=== PATIENT | female | born 1995 | race Caucasian/White ===

== ENCOUNTER 2017-04-15 15:24 | Emergency (ER) | payer SELFPAY ==
[2017-04-15 17:20] VITALS: BP 122/74
--- NOTE | 2017-04-22 19:01 | ED ---
Throat Pain/Nasal Congestion - HPI Summary HPI Summary: Patient presents to the ED with CC of bio toilet tower cleaner in the right eye. Now has a burning sensation, she rinsed the eye for approx 15 minutes under the sink. She still notes to burning despite rinsing. She also endorses blurry vision in the right eye, which has now dissipated, but the drainage is copious and continues to burn. Denies glasses or contact use. She has never injured the eye before. She denies allergies, medications and is generally healthy. Visual acuity not able to be obtained d/t patient unwilling to open eye d/t pain. Erythema and drainage noted. - History of Current Complaint Chief Complaint: EDEyeProblem Time Seen by Provider: 04/15/17 15:50 Hx Obtained From: Patient Onset/Duration: Sudden Onset Severity: Moderate - Epiglottits Risk Factors Epiglottis Risk Factors: Negative - Allergies/Home Medications Allergies/Adverse Reactions: Allergies Allergy/AdvReac Type Severity Reaction Status Date / Time No Known Allergies Allergy Verified 04/15/17 15:29 PMH/Surg Hx/FS Hx/Imm Hx Previously Healthy: Yes - Immunization History Hx Pertussis Vaccination: No Immunizations Up to Date: Unable to Obtain/Confirm Infectious Disease History: Denies: Traveled Outside the [place] in Last 30 Days - Social History Occupation: Employed Part-time Lives: With Family Alcohol Use: Occasionally Hx Substance Use: No Substance Use Type: Reports: None Hx Tobacco Use: Yes Smoking Status (MU): Light Every Day Tobacco Smoker Review of Systems Constitutional: Negative Positive: Photophobia, Blurred Vision, Drainage, Erythema ENT: Negative Cardiovascular: Negative Respiratory: Negative Positive: no symptoms reported, see HPI Musculoskeletal: Negative Skin: Negative Neurological: Negative All Other Systems Reviewed And Are Negative: Yes Physical Exam Triage Information Reviewed: Yes Vital Signs On Initial Exam: Initial Vitals Temp Pulse Resp BP Pulse Ox 98.5 F 73 17 126/76 100 04/15/17 15:25 04/15/17 15:25 04/15/17 15:25 04/15/17 15:25 04/15/17 15:25 Vital Signs Reviewed: Yes Appearance: Positive: Well-Appearing, Well-Nourished Skin: Positive: Warm, Skin Color Reflects Adequate Perfusion Head/Face: Positive: Normal Head/Face Inspection, Temporal Artery Tenderness Eyes: Positive: Conjunctiva Inflammed Neck: Positive: Supple, No Lymphadenopathy Respiratory/Lung Sounds: Positive: Clear to Auscultation, Breath Sounds Present Cardiovascular: Positive: Normal, RRR, Pulses are Symmetrical in both Upper and Lower Extremities Musculoskeletal: Positive: Normal, Strength/ROM Intact Neurological: Positive: Sensory/Motor Intact, Facial Symmetry Psychiatric: Positive: Normal AVPU Assessment: Alert Diagnostics - Vital Signs Vital Signs Temp Pulse Resp BP Pulse Ox 04/15/17 17:19 97.8 F 53 16 122/74 04/15/17 15:25 98.5 F 73 17 126/76 100 - Laboratory Lab Statement: Any lab studies that have been ordered have been reviewed, and results considered in the medical decision making process. EENT Course/Dx - Course Course Of Treatment: Coy lens applied to the left eye and irrigated for 20 minutes based on UTD recommendations. Toilet bowl tower cleaner is an acid and requires minimal irrigation compared to a base. After irrigation, patient is feeling no pain or irritation, erythema has dissipated and her vision is back to normal per patient. Fluoroscein stain and dejesus lamp used to evaluated an corneal damage. No uptake seen. Eye antibiotics prescribed based on protocol and she is to follow up with opthomology if symptoms persist. Patient agrees and is OK with discharge. - Differential Diagnoses Differential Diagnoses: Abrasion, Conjunctivitis, Keratitis - Diagnoses Provider Diagnoses: Acid chemical burn of right eye Discharge - Discharge Plan Condition: Stable Disposition: HOME Prescriptions: Polymyx/Trimethoprim OPTH* [Polytrim OPHTH*] 1 drop RIGHT EYE Q3H #1 btl Patient Education Materials: [facility] (ED) Referrals: [facility] [Primary Care Provider] - Nelson Peoples MD [Medical Doctor] - Additional Instructions: Instill 1 drop in affected eye(s) every 3 hours while awake for 5 days Follow up with opthomology if symptoms persist or worsen Addendum entered and electronically signed by Tiff Hardy PA 04/24/17 07:53 : ED Addendum Addendum: no addendum needed.
== END 2017-04-15 17:19 | disposition home or self-care (01) ==
LOC: ED 15:24
DX: T65.91XA Toxic effect of unspecified substance, accidental (unintentional), initial encounter (principal); T26.91XA Corrosion of right eye and adnexa, part unspecified, initial encounter; H53.8 Other visual disturbances; H53.149 Visual discomfort, unspecified; F17.210 Nicotine dependence, cigarettes, uncomplicated; T79.9XXA Unspecified early complication of trauma, initial encounter; Y93.9 Activity, unspecified; Y92.9 Unspecified place or not applicable
CPT/HCPCS: 99281

== ENCOUNTER 2017-08-27 10:35 | Day surgery (SDC) | payer OTHER ==
--- NOTE | 2017-08-19 19:42 | HP ---
PREOPERATIVE HISTORY AND PHYSICAL: DATE OF ADMISSION/SURGERY: 08/27/17 - [facility] DATE OF OFFICE VISIT: 08/19/17 ATTENDING SURGEON: Angel Jonas MD * (DICTATED BY GRANT SANDOVAL) PROCEDURE: Right knee arthroscopic surgery removal of hardware. CHIEF COMPLAINT: Right knee pain. HISTORY OF PRESENT ILLNESS: Raiza is a 21-year-old female, who presents to the clinic with right knee pain. She had a prior ACL with Dr. Munoz in 2001. She has some pain about the medial tibia due to her hardware. She has failed conservative measures and therefore agreed to undergo a right knee arthroscopic surgery removal of hardware with Dr. Jonas on 08/27/17. PAST MEDICAL HISTORY: She denies current problems. PAST SURGICAL HISTORY: Right and left knee ACL reconstruction. MEDICATIONS: TriNessa 0.18-0.215-0.25 mcg one by mouth everyday. ALLERGIES: No known drug allergies. FAMILY HISTORY: Positive for diabetes on the maternal side. SOCIAL HISTORY: She lives alone. 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 She reports occasional alcohol consumption. She smokes 4 cigarettes a day. She denies illegal drug use. REVIEW OF SYSTEMS: A 14-point review of systems was reviewed with the patient. Positive for current complaint, otherwise negative. Denies chest pain, shortness of breath. Denies fevers, chills. Denies history of bleeding disorder. Denies history of DVT or PE. PHYSICAL EXAMINATION GENERAL: A 21-year-old, well-developed, well-nourished female, in no acute distress. Alert and oriented x3. Appropriate mood and affect. VITAL SIGNS: Height 60, weight 115. Blood pressure 104/66, respiratory rate 18 , temperature 97.7. BMI 22.5. HEENT: Normocephalic, atraumatic. PERRLA. Throat clear. NECK: Supple. PULMONARY: Lungs clear to auscultation bilaterally. No wheezing, rhonchi, or rales. CARDIO: Regular rate and rhythm. S1, and S2. No murmurs, gallops, or rubs. No edema. ABDOMEN: Positive bowel sounds. Soft, nontender. MUSCULOSKELETAL: Right lower extremity: Skin is intact. No warmth or erythema. 1A James. Stable to varus and valgus stress. Mild effusion in the knee. Small palpable tender mass where the tibial tunnel hardware is. Calf: Soft, nontender. Range of motion is 0 to 130. Nontender over the joint line. + 2 PT pulses. Sensation intact to light touch distally. NEURO: Alert and oriented x3. Cranial nerves grossly intact. Sensation is intact to light touch. DIAGNOSTIC STUDIES/LAB DATA: MRI reveals ACL is intact. No obvious meniscus tear, small cyst adjacent to the screw. The screw is intact and appears to be prominent. IMPRESSION: Right knee symptomatic hardware. PLAN: The patient is scheduled to undergo a right knee arthroscopic surgery removal of hardware with Dr. Jonas on 08/27/17. She will follow up 10 to 14 days postop for followup and suture removal. Percocet was sent to the patient' s pharmacy for postop pain management and Keflex for antibiotic prophylaxis. GRANT SANDOVAL [id number]/[facility] #: [id number] [place]
[~2017-08-27 10:35] MED LIST: Buffered Lidocaine 0.9% SYRIN* 5 ML/SYR SYRINGE INTRADERM ONE; Sodium Citrate/Citric Acid* 15 ML UDC PO ONE
[2017-08-27] MEDS ORDERED: Lidocaine 1% MPF wEPI 200,000* 30 ML SDV ONE (10:38)
[2017-08-27] MEDS ORDERED: Bupivacaine 0.25% SDV* 30 ML ONE (10:38)
[2017-08-27] MEDS ORDERED: Sodium Citrate/Citric Acid* 15 ML UDC ONE (10:40)
[2017-08-27] MEDS ORDERED: ceFAZolin 2 GM PREMIX (*) 2 GM/50 ML BAG IVPB ONE (10:40)
[2017-08-27] MEDS ORDERED: Ondansetron INJ* 2 MG/ML VIAL IV PRN (10:45)
[2017-08-27] MEDS ORDERED: Propofol* 10 MG/ML 20 ML BTL IV PUSH ONE ×2 (11:32→11:49)
[2017-08-27] MEDS ORDERED: Lidocaine 2% PF * 5 ML VIAL ONE (11:34)
[2017-08-27] MEDS ORDERED: fentaNYL* 50 MCG/ML 2 ML VIAL (100 MCG VIAL) ONE ×2 (11:35→12:49)
[2017-08-27] MEDS ORDERED: Ketorolac INJ* 30 MG/ML 1 ML VIAL ONE (12:10)
[2017-08-27] MEDS: fentaNYL* 50 MCG/ML 2 ML VIAL (100 MCG VIAL) IV PRN ×2 (12:55→13:06)
[2017-08-27] MEDS ORDERED: oxyCODONE/Acetamin 5/325 MG* TAB ONE (13:35)
[2017-08-27 14:33] VITALS: BP 124/73
--- NOTE | 2017-08-29 08:13 | OP ---
DATE OF OPERATION: 08/27/17 [facility] DATE OF : 89 SURGEON: Angel Jonas MD STUFFER: GRANT Bee. Senior Project Accountant was needed for the entirety of the case to help with positioning, retraction, and was utilized throughout all portions of the case. ANESTHESIOLOGIST: Manjit Cabrera DO ANESTHESIA: General. PRE-OP DIAGNOSIS: Right knee previous anterior cruciate ligament reconstruction with retained hardware that is painful. POST-OP DIAGNOSIS: Right knee previous anterior cruciate ligament reconstruction with retained hardware that is painful. OPERATIVE PROCEDURE: 1. Right knee arthroscopy with partial lateral meniscectomy. 2. Open decompression of a cyst which was like 3x3 cm adjacent to the bone with removal of scarred hardware of the bone. INDICATIONS: Raiza Wilson is a 21-year-old female, who underwent an ACL reconstruction with BTB autograft by Dr. Munoz in 2011. She states a few months after the ACL she had a twisting injury, had a lot of pain. She then reinjured a couple of months ago and had increased pain. She has noticed swelling in a small area of pocket of fluid about the lower medial incision. She does not have any instability. We had an MRI that demonstrated that the ACL was intact, but she had a small cyst and the screw was possibly sticking out and bothering her. Risks and benefits of surgery were discussed at length including but not limited to bleeding, infection, damage to nerves, vessels, surrounding structures, wound nonhealing, persistent pain, need for further surgery, scarring, stiffness, incomplete relief of symptoms, risks of anesthesia , and risk of DVT. She has elected to proceed. COMPLICATIONS: None. ESTIMATED BLOOD LOSS: Minimal. TOURNIQUET TIME: 0 minutes. DESCRIPTION OF PROCEDURE: The patient was greeted in the preoperative area by the attending surgeon. Correct extremity was marked, consent was confirmed. The patient was brought back to the operating suite where she was placed in the supine on the operating room table. She then underwent general anesthesia after which an unsterile tourniquet was placed high proximally in the right knee. The lateral post was positioned. The right leg was prepped and draped in the usual sterile fashion beginning with chlorhexidine soap, scrub, and alcohol wipe, and a final prep with ChloraPrep. After appropriate surgical pause indicating side, site, procedure, and administration of antibiotics, an anterolateral portal was made sharply with an 11 blade. The scope was introduced through the joint, the joint was examined. The patello-femoral joint had grade 0 to 1 changes. The medial and lateral gutters were intact without any loose bodies. Medial compartment had grade 0 to 1 changes. Medial meniscus was intact. The ACL and PCL were intact. There was no evidence of loosening or cyclops lesion. The lateral compartment was examined, there were grade 0 to 1 changes. There was some fraying of the meniscus along the body as well as to the root, this was debrided back using a shaver. Once this portion was completed, attention was directed to the open portion. The incision was made using a 15 blade on the inferior portion of the tibia. The hardware was palpable. The soft tissues were carefully dissected to expose moderate-sized area where there was tissue. The hardware itself was very hard to discern from the tissue as it was scarred over, but it was apparently about 1.5 cm sticking up from the bone. This was then sharply debrided back using the 15 blade as well as the electrocautery device. The reactive scarred tissue as well as the hardware was then carefully removed. The bone was then debrided and flattened using a rasp. There was a cyst adjacent to this which had white cloudy fluid, which was likely from the screw reabsorbing. This was cultured and biopsied, had a strange smell to it, but it did not look like gross purulence. This was sent for anaerobic, aerobic, as well as the tissue specimens as well. This was thoroughly removed from the cyst cavity and thoroughly lavaged with sterile saline. A curette was then used to roughen up the wilks of the cyst so it would close. There would be no further seal. The bone also was debrided back as well to make sure there was good bony bleeding bed. The wounds were copiously irrigated with sterile saline. Portals were closed with 3-0 nylon. The anterior wound was closed with 2-0 Vicryl and 3-0 nylon. Sterile dressings were applied. The wound was injected with 0.25% Marcaine plain as well as the knee. A Cryo/Cuff was placed. She was awoken from anesthesia and transferred to the PACU in stable condition. POSTOPERATIVE PLAN: She will be discharged on pain medication as well as ibuprofen and antibiotics. DVT prophylaxis considered but deferred due to no previous personal or family history. I will see the patient back in 10 to 14 days. [id number]/[facility] #: [id number] [facility] HOSPITALRiky
== END 2017-08-27 14:20 | disposition home or self-care (01) ==
LOC: OR 10:35
PROVIDERS: ATTEND Orthopaedic Surgery
DX: T84.84XA Pain due to internal orthopedic prosthetic devices, implants and grafts, initial encounter (principal); Y83.1 Surgical operation with implant of artificial internal device as the cause of abnormal reaction of the patient, or of later complication, without mention of misadventure at the time of the procedure; S83.261A Peripheral tear of lateral meniscus, current injury, right knee, initial encounter; X50.0XXA Overexertion from strenuous movement or load, initial encounter; Y92.9 Unspecified place or not applicable; M25.861 Other specified joint disorders, right knee; F17.210 Nicotine dependence, cigarettes, uncomplicated
CPT/HCPCS: 81025; 87070; 87073; 87205; 87640; 87641; A9270-GY; J0690; J1885; J2001; J2704; J3010

== ENCOUNTER 2018-01-20 11:26 | Emergency (ER) | payer OTHER ==
--- NOTE | 2018-01-20 13:18 | RAD ---
Indication: Right wrist pain 3 views of the wrist demonstrates no fracture. No other bone or joint abnormality is identified. IMPRESSION: NO FRACTURE OF THE WRIST IS NOTED.
--- NOTE | 2018-01-20 13:52 | ED ---
Upper Extremity Pain - HPI Summary HPI Summary: Patient is a 22-year-old female presenting to the ED with chief complaint of right wrist pain. She states she was moving furniture and hurt her right lateral wrist clinic and now is having radiation of pain up the arm and down to the fingertips both on the radial and ulnar side. She has never injured the wrist before. She has not taken any medication for relief. She arrives with ice to the area. Pain is aggravated with flexion of the wrist, alleviated with full extension of the wrist and fingertips. Denies any color or temperature changes. - History of Current Complaint Chief Complaint: EDExtremityUpper Stated Complaint: RT WRIST PAIN Time Seen by Provider: 01/20/18 11:41 Hx Obtained From: Patient Mechanism Of Injury: Twisted Onset/Duration: Started Hours Ago Timing: Constant Severity Initially: Moderate Severity Currently: Severe Pain Location: Forearm Character: Aching Aggravating Factor(s): Movement, Lifting, Flexion Alleviating Factor(s): Rest, Ice, Compression Associated Signs & Symptoms: Positive: Negative, Numbness/Tingling. Negative: Swelling, Redness, Bruising Related History: Occupational Injury, Dominant Hand Right - Risk Factors Non-Orthopedic Risk Factor: Negative DVT Risk Factors: Negative Septic Arthritis Risk Factor: Negative Compartment Syndrome Risk Factors: Pain, Paresthesias - Allergies/Home Medications Allergies/Adverse Reactions: Allergies Allergy/AdvReac Type Severity Reaction Status Date / Time No Known Allergies Allergy Verified 01/07/18 11:25 Home Medications: Home Medications Norgestimate-Ethinyl Estradiol [Trinessa Tablet] 1 tab PO DAILY 01/20/18 [ History Confirmed 01/20/18] PMH/Surg Hx/FS Hx/Imm Hx Previously Healthy: Yes Endocrine/Hematology History: Denies: Hx Diabetes Cardiovascular History: Denies: Hx Hypertension, Hx Pacemaker/ICD, Other Cardiovascular Problems/ Disorders Respiratory History: Denies: Other Respiratory Problems/Disorders GI History: Reports: Hx Irritable Bowel - as a child Denies: Other GI Disorders History: Denies: Hx Renal Disease, Other Problems/Disorders Musculoskeletal History: Denies: Other Musculoskeletal History Sensory History: Denies: Hx Contacts or Glasses, Hx Hearing Aid Opthamlomology History: Denies: Hx Contacts or Glasses Neurological History: Denies: Other Neuro Impairments/Disorders Psychiatric History: Denies: Hx Panic Disorder - Surgical History Surgery Procedure, Year, and Place: Rt KNEE- ACL W/ HARDWARE, 2011 & 09/2017 - HARDWARE REMOVED. L T KNEE - W/ HARDWARE, 2009 Hx Anesthesia Reactions: Yes - nausea and vomiting - Immunization History Hx Pertussis Vaccination: No Immunizations Up to Date: Yes Infectious Disease History: No Infectious Disease History: Denies: Traveled Outside the [place] in Last 30 Days - Social History Occupation: Employed Full-time Lives: With Family Alcohol Use: Weekly Alcohol Amount: 3 per week Hx Substance Use: No Substance Use Type: Reports: None Substance Use Comment - Amount & Last Used: weekly Hx Tobacco Use: Yes Smoking Status (MU): Light Every Day Tobacco Smoker Amount Used/How Often: 4 cigs a day for 5 years Review of Systems Constitutional: Negative Negative: Fever, Chills, Fatigue ENT: Negative Negative: Palpitations, Chest Pain Negative: Shortness Of Breath, Cough Genitourinary: Negative Positive: no symptoms reported, see HPI Positive: Arthralgia, Myalgia Skin: Negative Neurological: Negative All Other Systems Reviewed And Are Negative: Yes Physical Exam Triage Information Reviewed: Yes Vital Signs On Initial Exam: Initial Vitals Temp Pulse Resp BP Pulse Ox 99 F 66 18 122/53 98 01/20/18 11:27 01/20/18 11:27 01/20/18 11:27 01/20/18 11:27 01/20/18 11:27 Vital Signs Reviewed: Yes Appearance: Positive: Well-Appearing, No Pain Distress, Well-Nourished Skin: Positive: Warm, Skin Color Reflects Adequate Perfusion Head/Face: Positive: Normal Head/Face Inspection Neck: Positive: Supple, Nontender, No Lymphadenopathy Respiratory/Lung Sounds: Positive: Clear to Auscultation, Breath Sounds Present Cardiovascular: Positive: RRR, Pulses are Symmetrical in both Upper and Lower Extremities Musculoskeletal: Positive: Pain @ - R dorsum of the wrist with flexion at MCP Neurological: Positive: Sensory/Motor Intact, Speech Normal Psychiatric: Positive: Affect/Mood Appropriate AVPU Assessment: Alert Diagnostics - Vital Signs Vital Signs Temp Pulse Resp BP Pulse Ox 01/20/18 11:27 99 F 66 18 122/53 98 - Laboratory Lab Statement: Any lab studies that have been ordered have been reviewed, and results considered in the medical decision making process. Course/Dx - Course Course Of Treatment: During the course of treatment, the patient is evaluated for right wrist pain after moving furniture at work. I have discussed with the patient this is likely a tendinopathy/tendinitis due to mechanism of injury, however we'll provide an x-ray to rule out any fracture or other pathology. X- ray obtained is negative. Due to pain with flexion at the MCP joints, patient is requesting a splint for full extension of the fingertips. Volar splint applied up to fingertips. Patient will follow-up with Ortho [facility]ra for any worsening symptoms. - Diagnoses Differential Diagnosis/HQI/PQRI: Positive: Strain, Sprain Provider Diagnoses: Muscle strain Discharge - Sign-Out/Discharge Documenting (check all that apply): Discharge/Admit/Transfer - Discharge Plan Condition: Stable Disposition: HOME Prescriptions: Ibuprofen 600 mg PO TID PRN #30 tablet MDD 3 PRN Reason: Pain Patient Education Materials: Muscle Strain (ED) Forms: *Work Release Referrals: No Primary Care Phys,NOPCP [Primary Care Provider] - Additional Instructions: Follow up with ortho if symptoms persist You may take off the splint and reapply for comfort Ibuprofen 600mg three times daily - Billing Disposition and Condition Condition: STABLE Disposition: HOME
[2018-01-20 14:18] VITALS: BP 110/71
== END 2018-01-20 14:18 | disposition home or self-care (01) ==
LOC: ED 11:26
DX: S66.911A Strain of unspecified muscle, fascia and tendon at wrist and hand level, right hand, initial encounter (principal); M25.531 Pain in right wrist; X50.0XXA Overexertion from strenuous movement or load, initial encounter; X50.9XXA Other and unspecified overexertion or strenuous movements or postures, initial encounter; Y93.89 Activity, other specified; Y92.9 Unspecified place or not applicable; F17.210 Nicotine dependence, cigarettes, uncomplicated
CPT/HCPCS: 99282

== ENCOUNTER 2018-06-22 04:36 | Emergency (ER) | payer OTHER ==
[2018-06-22] MEDS ORDERED: NS 0.9% 1000 ML* 1,000 ML IV ONE ×2 (05:02→09:23)
[2018-06-22] MEDS ORDERED: Acetaminophen TAB* 325 MG PO ONE (05:02)
[2018-06-22 05:24] LABS: ABS Basophils 0 10^3/ul (0-0.2); ABS Eosinophils 0 10^3/ul (0-0.6); ABS Lymphocytes 0.6 10^3/ul (1.0-4.8); ABS Monocytes 0.5 10^3/ul (0-0.8); ABS Neutrophils 4.6 10^3/ul (1.5-7.7); ABS Nucleated RBC 0 10^3/ul; Eosinophil % 0 % (0-6); Hematocrit 39 % (35-47); Hemoglobin 13.3 g/dl (12.0-16.0); Lymphocyte % 9.7 % (25-47); Mean Corpuscular HGB Conc 35 g/dl (31-36); Mean Corpuscular Hemoglobin 33 pg (27-31); Mean Corpuscular Volume 95 fL (80-97); Mean Platelet Volume 8.6 um3 (7.4-10.4); Nucleated Red Blood Cells % 0.1; Platelet Count 174 10^3/ul (150-450); Red Blood Count 4.07 10^6/ul (4.00-5.40); Red Cell Distribution Width 13 % (10.5-15); White Blood Count 5.7 10^3/ul (3.5-10.8)
[2018-06-22 05:35] LABS: INR 0.95 (0.77-1.02)
[2018-06-22 05:36] LABS: Urine Appearance Clear; Urine Blood Negative (Negative); Urine Color Straw; Urine Ketones Negative (Negative); Urine Protein Negative (Negative); Urine Specific Gravity 1.003 (1.010-1.030); Urine Urobilinogen Negative (Negative)
--- NOTE | 2018-06-22 05:40 | ED ---
Back Pain - HPI Summary HPI Summary: This patient is a 22 year old F presenting to ED with a chief complaint of severe back pain since 4 days ago. The CC is described as sharp pain going up her spine and radiating to her shoulders at around 0100 today. Prior treatment includes oxycodone and ibuprofen. The patient rates the pain 10/10 in severity. Symptoms aggravated by nothing. Symptoms alleviated by nothing. Patient reports joint pain, neck stiffness, fever, pressure CRUZ secondary to cough, rhinorrhea, and dizziness. Patient denies diarrhea and congestion. LMP was a week ago. PMHx of mono as a child (had similar pain previously and was dx as secondary to childhood mono). - History of Current Complaint Chief Complaint: EDBackInjuryPain Stated Complaint: BACK PAIN Time Seen by Provider: 06/22/18 05:23 Hx Obtained From: Patient Hx Last Menstrual Period: 1 week ago Onset/Duration: Sudden Onset, Lasting Days, Still Present Onset/Duration: Started Days Ago, Still Present Timing: Constant, Lasting Days Severity Initially: Severe Severity Currently: Severe Pain Intensity: 10 Pain Scale Used: 0-10 Numeric Character: Sharp Aggravating Symptom(s): Nothing Alleviating Symptom(s): Nothing Associated Signs And Symptoms: Positive: Fever - Patient reports joint pain, neck stiffness, pressure CRUZ secondary to cough, rhinorrhea, and dizziness. Patient denies diarrhea and congestion., Other - Allergies/Home Medications Allergies/Adverse Reactions: Allergies Allergy/AdvReac Type Severity Reaction Status Date / Time No Known Allergies Allergy Verified 06/22/18 04:42 Home Medications: Home Medications Montelukast Sodium TAB* [Singulair TAB*] 5 mg PO DAILY 06/22/18 [History Confirmed 06/22/18] PMH/Surg Hx/FS Hx/Imm Hx Endocrine/Hematology History: Denies: Hx Diabetes Cardiovascular History: Denies: Hx Hypertension, Hx Pacemaker/ICD, Other Cardiovascular Problems/ Disorders Respiratory History: Denies: Other Respiratory Problems/Disorders GI History: Reports: Hx Irritable Bowel - as a child Denies: Other GI Disorders History: Denies: Hx Renal Disease, Other Problems/Disorders Musculoskeletal History: Denies: Other Musculoskeletal History Sensory History: Denies: Hx Contacts or Glasses, Hx Hearing Aid Opthamlomology History: Denies: Hx Contacts or Glasses Neurological History: Denies: Other Neuro Impairments/Disorders Psychiatric History: Denies: Hx Panic Disorder - Surgical History Surgery Procedure, Year, and Place: Rt KNEE- ACL W/ HARDWARE, 2011 & 09/2017 - HARDWARE REMOVED. L T KNEE - W/ HARDWARE, 2009 Hx Anesthesia Reactions: Yes - nausea and vomiting Infectious Disease History: No Infectious Disease History: Denies: Traveled Outside the [place] in Last 30 Days - Family History Known Family History: Positive: Diabetes - Social History Alcohol Use: Weekly Alcohol Amount: 3 per week Hx Substance Use: No Substance Use Type: Reports: Marijuana Substance Use Comment - Amount & Last Used: weekly Hx Tobacco Use: Yes Smoking Status (MU): Light Every Day Tobacco Smoker Amount Used/How Often: 4 cigs a day for 5 years Review of Systems Positive: Fever Positive: Other - rhinorrhea; denies congestion Positive: Cough Negative: Diarrhea Positive: Other - back pain (up her spine and radiating to her shoulder, joint pain, neck stiffness Neurological: Other - dizziness Positive: Headache - pressure CRUZ secondary to cough All Other Systems Reviewed And Are Negative: Yes Physical Exam - Summary Physical Exam Summary: GENERAL: Patient is a well-developed and nourished M who is lying comfortable in the stretcher. Patient is not in any acute respiratory distress. HEAD AND FACE: Normocephalic. Diaphoretic. EYES: PERRLA, EOMI x 2. EARS: Hearing grossly intact. MOUTH: Oropharynx within normal limits. NECK: Supple, trachea is midline, no adenopathy, no JVD, no carotid bruit. CHEST: Symmetric, no tenderness at palpation LUNGS: Clear to auscultation bilaterally. No wheezing or crackles. CVS: Regular rate and rhythm, S1 and S2 present, no murmurs or gallops appreciated. ABDOMEN: Soft, non-tender. Bowel sounds are normal. No abdominal abnormal pulsations. EXTREMITIES: Full ROM in all major joints, no edema, no cyanosis or clubbing. NEURO: Alert and oriented x 3. No acute neurological deficits. Speech is normal and follows commands. SKIN: Dry and warm Triage Information Reviewed: Yes Vital Signs On Initial Exam: Initial Vitals Temp Pulse Resp BP Pulse Ox 103.3 F 91 20 131/67 97 06/22/18 04:41 06/22/18 04:41 06/22/18 04:41 06/22/18 04:41 06/22/18 04:41 Vital Signs Reviewed: Yes Procedures - Lumbar Puncture Lower Position: Sitting Aseptic Technique: Local Anesthesia Anesthesia Used: 2.0% Lido - with epi Spinal Needle Used: 22 Gauge Lumbar Puncture Note: Patient's consent was taken. No complications. Diagnostics - Vital Signs Vital Signs Temp Pulse Resp BP Pulse Ox 06/22/18 05:06 97 06/22/18 05:01 13 06/22/18 04:59 100.9 F 06/22/18 04:53 92 28 132/75 98 06/22/18 04:52 95 29 96 06/22/18 04:41 103.3 F 91 20 131/67 97 - Laboratory Lab Results: Lab Results 06/22/18 Range/Units 05:10 WBC 5.7 (3.5-10.8) 10^3/ul RBC 4.07 (4.00-5.40) 10^6/ul Hgb 13.3 (12.0-16.0) g/dl Hct 39 (35-47) % MCV 95 (80-97) fL MCH 33 H (27-31) pg MCHC 35 (31-36) g/dl RDW 13 (10.5-15) % Plt Count 174 (150-450) 10^3/ul MPV 8.6 (7.4-10.4) um3 Neut % (Auto) 81.3 (38-83) % Lymph % (Auto) 9.7 L (25-47) % [place] % (Auto) 8.4 H (0-7) % Eos % (Auto) 0 (0-6) % Baso % (Auto) 0.6 (0-2) % Absolute Neuts (auto) 4.6 (1.5-7.7) 10^3/ul Absolute Lymphs (auto) 0.6 L (1.0-4.8) 10^3/ul Absolute Monos (auto) 0.5 (0-0.8) 10^3/ul Absolute Eos (auto) 0 (0-0.6) 10^3/ul Absolute Basos (auto) 0 (0-0.2) 10^3/ul Absolute Nucleated RBC 0 10^3/ul Nucleated RBC % 0.1 ESR Pending Result Diagrams: 06/22/18 05:10 06/22/18 05:10 Lab Statement: Any lab studies that have been ordered have been reviewed, and results considered in the medical decision making process. - Radiology CXR Radiology Interpretation Completed By: ED Physician - No acute processes. Dr. Castro has reviewed this radiology report. Back Pain Course/Dx - Course Assessment/Plan: This patient is a 22 year old F presenting to ED with a chief complaint of severe back pain since 4 days ago. In the ED course, the patient was given Tylenol and fluids. CXR reveals no acute processes. LP was done at 0608 with patient's consent. This patient will be signed out to Dr. Gaspar, awaiting LP results. - Diagnoses Differential Diagnosis/HQI/PQRI: Positive: Other - fever Provider Diagnoses: Fever Discharge - Sign-Out/Discharge Documenting (check all that apply): Sign-Out Patient Signing out patient TO: Layla Gaspar - Discharge Plan Referrals: Renée Jones, CLUTCH OPERATOR [Primary Care Provider] - - Attestation Statements Document Initiated by Scribe: Yes Documenting Scribe: Abdiaziz Blue Provider For Whom Scribe is Documenting (Include Credential): Tylor Castro MD Scribe Attestation: Abdiaziz Travis, scribed for Tylor Castro MD on 06/22/18 at 0649.
[2018-06-22 05:47] LABS: EGFR Non-African American 89.4 (>60)
[2018-06-22] MEDS ORDERED: Lidocaine 2% EPI 1:200000 MPF*10-20 ML VIAL ONE (06:00)
[2018-06-22] MEDS ORDERED: Ketorolac INJ* 15 MG/ML 1 ML VIAL ONE (06:08)
[2018-06-22] MEDS ORDERED: Ketorolac INJ* 15 MG/ML 1 ML VIAL IV PUSH ONE (06:11)
[2018-06-22] MEDS ORDERED: Morphine VIAL* 10 MG/ML 1 ML VIAL IV ONE (06:48)
[2018-06-22] MEDS ORDERED: Morphine INJ* 4 MG/ML 1 ML SYRINGE (NEW SYRINGE VERSION) ONE (06:49)
[2018-06-22] MEDS ORDERED: Morphine INJ* 4 MG/ML 1 ML SYRINGE (NEW SYRINGE VERSION) IV ONE (06:52)
[2018-06-22 06:55] LABS: Body Fluid Source Cerebral Spinal
--- NOTE | 2018-06-22 07:24 | ED ---
Progress - Progress Note Progress Note: Patient was received as a sign out from Dr. Castro to Dr. Gaspar at 0700 shift change pending results of lumbar puncture. CSF showed elevated glucose with no other remarkable findings. CSF gram stain was negative as well. 0910 - Patient states that she feels "crappy" in the room. She reports severe neck pain and stiffness, lower back pain that radiates into hips. Headache is also noted. She reports current CRUZ is different than the one she came in with. Current CRUZ is reported to be across forehead and described as a pressure CRUZ. Cough is also noted, non-productive. Nausea from pain is endorsed. Sx onset four days ago. Patient reports PSHx of knee surgery and no other Hx of medical problems. Patient states that she is experiencing a burning sensation at her iliac crest. Labs and possible admission of patient were discussed. Patient was ambulated 30 feet with no difficulty. Care of patient was discussed with patient and family, patient will be given fluids, Zofran, Toradol. 1033 - Patient is capable of ambulation. Repeat lactic acid was 0.5. She will be discharged to home, patient and family members who are present in the room are comfortable with this comfortable with this disposition. Patient has post spinal tap CRUZ discussed care of this Sx. She was advised to take tylenol/motrin every six hours as needed for pain. Patient was also prescribed Zofran. She was advised not to go skydiving or drive until she feels better. Dx of URI, viral syndrome. Re-Evaluation - Re-Evaluation First Eval Re-Evaluation Time: 10:33 Change: Improved Comment: 033 - Patient is capable of ambulation. Repeat lactic acid was 0.5. She will be discharged to home, patient and family members who are present in the room are comfortable with this comfortable with this disposition. Patient has post spinal tap CRZU discussed care of this Sx. She was advised to take tylenol/motrin every six hours as needed for pain. Patient was also prescribed Zofran. She was advised not to go skydiving or drive until she feels better. Dx of URI, viral syndrome. Course/Dx - Course Course Of Treatment: Patient was received as a sign out from Dr. Castro to Dr. Gaspar at 0700 06/22/18 shift change pending results of lumbar puncture. CSF showed elevated glucose with no other remarkable findings. CSF gram stain was negative as well. 0910 - Patient states that she feels "crappy" in the room. She reports severe neck pain and stiffness, lower back pain that radiates into hips. Headache is also noted. She reports current CRUZ is different than the one she came in with. Current CRUZ is reported to be across forehead and described as a pressure CRUZ. Cough is also noted, non-productive. Nausea from pain is endorsed. Sx onset four days ago. Patient reports PSHx of knee surgery and no other Hx of medical problems. Patient states that she is experiencing a burning sensation at her iliac crest. Labs and possible admission of patient were discussed. Patient was ambulated 30 feet with no difficulty. Care of patient was discussed with patient and family, patient will be given fluids, Zofran, Toradol. 1033 - Patient is capable of ambulation. Repeat lactic acid was 0.5. She will be discharged to home, patient and family members who are present in the room are comfortable with this comfortable with this disposition. Patient has post spinal tap CRUZ discussed care of this Sx. She was advised to take tylenol/motrin every six hours as needed for pain. Patient was also prescribed Zofran. She was advised not to go skydiving or drive until she feels better. Dx of URI, viral syndrome. - Diagnoses Provider Diagnoses: Viral syndrome, URI (upper respiratory infection) Discharge - Sign-Out/Discharge Documenting (check all that apply): Patient Departure - discharge - Discharge Plan Condition: Stable Disposition: HOME Prescriptions: Azithromyxin MO (NF) [Z-Mo (Zithromax) 250 mg tabs #6] 2 tab PO .TODAY, THEN 1 DAILY #6 tab Ondansetron [Zofran Odt] 4 mg PO TID #30 tab MDD 3 Patient Education Materials: Upper Respiratory Infection (ED), Viral Syndrome ( ED) Referrals: Renée Jones NP [Primary Care Provider] - Additional Instructions: Please follow up with your primary care physician by tomorrow. return if worse or any new symptoms. You may take Motrin 600mg by mouth and Tylenol 650mg by mouth every 6 hours as needed for pain and fever. take the zofran as needed for nausea. - Billing Disposition and Condition Condition: STABLE Disposition: Home - Attestation Statements Document Initiated by Scribe: Yes Documenting Scribe: Corey Wellington Provider For Whom Scribe is Documenting (Include Credential): Layla Gaspar MD Scribe Attestation: I, Corey Wellington , scribed for Layla Gaspar MD on 06/22/18 at 1154. Scribe Documentation Reviewed: Yes Provider Attestation: The documentation as recorded by the Corey smiht accurately reflects the service I personally performed and the decisions made by me, Layla Gaspar MD
--- NOTE | 2018-06-22 08:17 | RAD ---
Indication: Cough. Severe back pain. Stiff neck. Fever. Shortness of breath. Comparison: July 24, 2008 Technique: Upright AP 0530 hours Report: Clear lungs and pleural spaces. Negative for pneumothorax. The heart, pulmonary vasculature, and mediastinal contours are unremarkable accounting for mild leftward rotation. Unremarkable osseous structures and soft tissue contours. IMPRESSION: #. No evidence for acute intrathoracic disease. R1
[2018-06-22] MEDS ORDERED: Ketorolac INJ* 30 MG/ML 1 ML VIAL IV PUSH ONE (09:24)
[2018-06-22] MEDS ORDERED: Ondansetron INJ* 2 MG/ML VIAL IV ONE (09:24)
[2018-06-22] MEDS ORDERED: Azithromycin TAB* 250 MG PO ONE (11:12)
[2018-06-22 11:34] VITALS: BP 106/65
[2018-06-23 17:13] LABS: CSF VDRL Negative (Negative)
== END 2018-06-22 11:33 | disposition home or self-care (01) ==
LOC: ED 04:36
DX: R50.9 Fever, unspecified (principal); M54.9 Dorsalgia, unspecified; F17.210 Nicotine dependence, cigarettes, uncomplicated
CPT/HCPCS: 36415; 62270; 71045; 80053; 81003; 82945; 83605; 84145; 84157; 84484; 85025; 85610; 85652; 85730; 86592; 87040; 87070; 87205; 87529; 87651; 87798; 87899; 89051; 96361; 96374; 96375; 96376; 99283; A9270-GY; J1885; J2270; J2405

== ENCOUNTER 2018-08-03 08:46 | Day surgery (SDC) | payer OTHER ==
--- NOTE | 2018-07-29 21:13 | HP ---
PREOPERATIVE HISTORY AND PHYSICAL: DATE OF SURGERY: 08/03/18 [facility] ATTENDING SURGEON: Angel Jonas MD * (DICTATED BY GRANT SANDOVAL) PROCEDURE: Left knee arthroscopic surgery removal of hardware, proximal tibia. CHIEF COMPLAINT: Left knee. HISTORY OF PRESENT ILLNESS: Raiza is a 22-year-old female who presented to clinic status post left knee ACL reconstruction. She continued to have pain due to painful hardware. She failed conservative measures and therefore, agreed to undergo a left knee arthroscopic surgery removal of hardware proximal tibia on 08/03/18. PAST MEDICAL HISTORY: Denies current problem. PAST SURGICAL HISTORY: Right and left knee ACL reconstructions and right knee removal of hardware. MEDICATIONS: TriNessa 0.18-0.215-0.25 one by mouth every day. ALLERGIES: No known drug allergies. FAMILY HISTORY: Positive for diabetes on the maternal side. SOCIAL HISTORY: She lives alone. 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 She reports occasional alcohol consumption. She denies tobacco use. She denies illegal drug use. REVIEW OF SYSTEMS: A 14-point review of systems was reviewed with the patient. Positive for current complaint, otherwise negative. Denies fever, chills, chest pain, shortness of breath, history of DVT or PE, history of bleeding disorder. PHYSICAL EXAMINATION GENERAL: A 22-year-old well-developed, well-nourished female in no acute distress. Alert and oriented x3. Appropriate mood and affect. VITAL SIGNS: Height 60. Pulse 60, blood pressure 96/52, respiratory rate 16, and temperature 98.1. HEENT: Normocephalic and atraumatic. PERRLA. NECK: Supple. Throat clear. PULMONARY: Lungs are clear to auscultation bilaterally. No wheezing, rhonchi, or rales. CARDIO: Regular rate and rhythm. S1 and S2. No murmurs, gallops, or rubs. No edema. ABDOMEN: Positive bowel sounds, soft, and nontender. NEUROLOGIC: Alert and oriented x3. Cranial nerves grossly intact. MUSCULOSKELETAL: Left lower extremity skin is intact. Tender with tibial scar. 1A James. Negative posterior drawer. Range of motion is 0 to 130. Stable to varus and valgus stress. Calf soft and nontender. +2 DP pulse. Sensation intact to light touch distally. Negative Johnny. STUDIES: MRI on 01/19/18 revealed ACL graft still intact and some patellar chondrosis. ASSESSMENT: Left knee painful hardware. PLAN: The patient is scheduled to undergo a left knee arthroscopic surgery removal of proximal tibia on 08/03/[address] Jonas. Percocet will be used for postop pain management. Keflex for antibiotic prophylaxis as the patient has had surgery in the past and she will follow up in 10 to 14 days postop for followup and suture removal. GRANT SANDOVAL [id number]/[facility] #: [id number] MTDRiky
[~2018-08-03 08:46] MED LIST changes: +Sodium Citrate/Citric Acid* 15 ML UDC ONE; +ceFAZolin 2 GM PREMIX in ORs 2 GM/50 ML BAG IVPB ONE
[2018-08-03] MEDS ORDERED: Bupivacaine 0.25% SDV PF* 10 ML VIAL INJ ONE (09:37)
[2018-08-03] MEDS ORDERED: Lidocaine 1% MPF wEPI 200,000* 30 ML SDV ONE ×2 (09:38→09:41)
[2018-08-03] MEDS ORDERED: Naloxone* 0.4 MG/ML 1 ML VIAL IV PRN (09:39)
[2018-08-03] MEDS ORDERED: fentaNYL* 50 MCG/ML 2 ML VIAL (100 MCG VIAL) IV PRN (09:39)
[2018-08-03] MEDS ORDERED: ROPIVACAINE 5 MG/ML 30 ML BTL (0.5%) ONE (09:41)
[2018-08-03] MEDS ORDERED: Propofol* 10 MG/ML 20 ML BTL ONE ×2 (09:45→10:14)
[2018-08-03] MEDS ORDERED: Ketorolac INJ* 30 MG/ML 1 ML VIAL ONE (09:45)
[2018-08-03] MEDS ORDERED: Ondansetron INJ* 2 MG/ML VIAL ONE (09:45)
[2018-08-03] MEDS ORDERED: Dexamethasone IV* 4 MG/ML 1 ML (4 MG) ONE (09:45)
[2018-08-03] MEDS ORDERED: Lidocaine 2% PF * 5 ML VIAL ONE (09:45)
[2018-08-03] MEDS ORDERED: fentaNYL* 50 MCG/ML 2 ML VIAL (100 MCG VIAL) ONE (09:46)
[2018-08-03] MEDS ORDERED: oxyCODONE/Acetamin 5/325 MG* TAB ONE (11:17)
[2018-08-03 12:16] VITALS: BP 113/80
--- NOTE | 2018-08-04 06:45 | OP ---
DATE OF OPERATION: 08/03/18 DATE OF : 89 SURGEON: Angel Jonas MD FINANCE ASSOCIATE: GRANT Robles. An service center assistant was needed for the entirety of the case to help with positioning, retraction and was utilized throughout all portions of the case. ANESTHESIOLOGIST: Dr. Cabrera. ANESTHESIA: General. PRE-OP DIAGNOSIS: Left knee retained hardware with knee pain. 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 OPERATIVE PROCEDURE: Left knee arthroscopy with: 1. Chondroplasty of the patella. 2. Partial lateral meniscectomy. 3. Cyclops lesion debridement with the synovectomy. 4. Open removal of scar at tibial hardware. TOURNIQUET TIME: Zero minutes. COMPLICATIONS: None. ESTIMATED BLOOD LOSS: Minimal. INDICATIONS: Raiza Wilson is a 22-year-old female who under previous ACL reconstruction by Dr. Munoz in a transtibial fashion with BTB autografts. So, we elected to proceed with left knee arthroscopy with removal of hardware and diagnostic arthroscopy. Risks and benefits were discussed at length and included, but not limited to bleeding, infection, damage to nerves, vessels, surrounding structures, wound nonhealing, persistent pain, need for further surgery, scarring, stiffness, incomplete relief of symptoms, risk of DVT, risks of anesthesia. DESCRIPTION OF PROCEDURE: The patient was greeted in the preoperative area by the attending surgeon. Correct extremity was marked and the consent was confirmed. The patient was brought back to the operating suite, where she was placed in supine position on operating table. She then underwent LMA anesthesia after which an unsterile tourniquet was placed high in the proximal thigh, the lateral post was positioned. The left knee was prepped and draped in the usual sterile fashion beginning with chlorhexidine soap, scrub and alcohol wipe and a final prep with ChloraPrep. After appropriate surgical pause indicating site, side, procedure and administration of antibiotics, the knee was intra-articularly injected with 1% lidocaine with epi. The lateral portal was made in the outside-in fashion. The scope was positioned in the joint. The joint was examined. There was obvious cyclops lesion that was present. The ACL was intact, but it had not fully healed. There was evidence of abrasion about the trochlea as well as grade 2 changes to the patella. There was abundant synovitis that was present as well. The anteromedial portal was made in the outside-in fashion. Shaver was used to debride back the synovitis anteriorly as well as debride the cyclops lesion. The graft was examined again. There were fibers that were intact, but it did not look like it has healed. The undersurface of the patella was visualized and there was evidence of grade 2 changes. Shaver was used to debride this back. About half the patella had grade 2 changes. The medial and lateral gutters were intact without any loose debris. Medial femoral condyle was examined. There were some mild chondrosis of the medial femoral condyle that was also debrided back using a shaver. The medial meniscus was intact. Medial plateau had grade 0 to 1 changes. The lateral compartment was examined. The lateral femoral condyle had grade 0 to 1 changes. Lateral meniscus had some lateral root had mild fragment which is debrided back. There is no large full thickness tear. Remainder of the meniscus was intact. The knee was then placed in full extension, chondroplasty was finished on the patella. The wounds were then thoroughly irrigated and removed many loose debris. Attention was then directed to the open portion. A #15 blade was used to open the previous incision. There was a palpable area of the painful bump. The structures were carefully dissected to expose the bump. There was an evidence of the previous tunnel with some excess scar tissue , but the screw had been reabsorbed unlike the previous size. There was a fair amount of scar, however, that was likely could have been the end of the tissue graft versus the remaining of bio-absorbed screw. This was then sharply removed. Electrocautery was used to maintain hemostasis at all times. Any visible or palpable bump was then removed. The wounds were then copiously irrigated with sterile saline. The wound was closed with 3-0 Monocryl and 3-0 nylon and the portals were closed with 3-0 nylon. Sterile dressings were applied. The wound was intra-articularly and superficially injected with 0.2% ropivacaine. Sterile dressings were applied. A Cryo/Cuff was applied. She was awoken from anesthesia and transferred to the PACU in stable condition. POSTOPERATIVE PLAN: She will be weightbearing as tolerated. Range of motion as tolerated. She will be discharged on pain medication and antibiotics. DVT prophylaxis was considered, but deferred due to no previous personal or family history. I will see the patient back in 10 to 14 days. [id number]/[facility] #: [id number] [place]- [id number]/[facility] #: [id number] [facility]iky
--- NOTE | 2018-08-04 06:53 | OP ---
ADDENDUM: DESCRIPTION OF PROCEDURE: The scope was positioned in the lateral compartment. The lateral femoral condyle had grade 0 to 1 changes, lateral plateau grade had 0 to 1 changes, lateral root had mild fragment which is debrided back. There is no large full thickness tear. Remainder of the meniscus was intact. The knee was then placed in full extension, chondroplasty was finished on the patella. The wounds were then thoroughly irrigated and removed many loose debris. Attention was then directed to the open portion. A #15 blade was used to open the previous incision. There was a palpable area of the painful bump. The structures were carefully dissected to expose the bump. There was an evidence of the previous tunnel with some excess scar tissue , but the screw had been reabsorbed unlike the previous size. There was a fair amount of scar, however, that was likely could have been the end of the tissue graft versus the remaining of bio-absorbed screw. This was then sharply removed. Electrocautery was used to maintain hemostasis at all times. Any visible or palpable bump was then removed. The wounds were then copiously irrigated with sterile saline. The wound was closed with 3-0 Monocryl and 3-0 nylon and the portals were closed with 3-0 nylon. Sterile dressings were applied. The wound was intra-articularly and superficially injected with 0.2% ropivacaine. Sterile dressings were applied. A Cryo/Cuff was applied. She was awoken from anesthesia and transferred to the PACU in stable condition. POSTOPERATIVE PLAN: She will be weightbearing as tolerated. Range of motion as tolerated. She will be discharged on pain medication and antibiotics. DVT prophylaxis was considered, but deferred due to no previous personal or family history. I will see the patient back in 10 to 14 days. [id number]/[facility] #: [id number] [place]
== END 2018-08-03 12:22 | disposition home or self-care (01) ==
LOC: OREAST 08:46
PROVIDERS: ATTEND Orthopaedic Surgery
DX: M93.862 Other specified osteochondropathies, left lower leg (principal); M23.262 Derangement of other lateral meniscus due to old tear or injury, left knee; L90.5 Scar conditions and fibrosis of skin; J30.89 Other allergic rhinitis
CPT/HCPCS: 81025; A9270-GY; J0690; J1100; J1885; J2001; J2405; J2704; J2795; J3010; J3490